=== PATIENT | female | born 1965 | race Caucasian/White ===

== ENCOUNTER → 2017-12-20 09:14 | Outpatient (CLI) | payer BC, SELFPAY ==
[2017-12-20 12:20] LABS: ALB/GLOB Ratio 1.3 RATIO (0.9-2.4); AST(SGOT) 18 U/L (15-37); Alanine Aminotransfer ALT/SGPT 20 U/L (13-56); Albumin, Serum 3.9 g/dL (3.2-5.0); Alkaline Phosphatase 51 U/L (45-117); Anion Gap 9 (5-15); BUN 16 mg/dL (7-18); BUN/Creat Ratio 22.7 RATIO (10-20); Calcium,Total 8.8 mg/dL (8.5-10.1); Chloride 103 mmol/L (98-107); Cholesterol 232 mg/dL (200); Creatinine, Serum 0.71 mg/dL (0.55-1.02); EST Glomerular Filtration Rate 92 mL/min (>60); Est Glom Filt Rate - Afr Amer 111 mL/min (>60); Ferritin 59 ng/mL (8-252); Globulin 3.1 g/dL (2.2-4.2); Glucose 84 mg/dL (74-106); High Density Lipoprotein 57 mg/dL; Potassium 4.1 mmol/L (3.5-5.1); Sodium Level 140 mmol/L (136-145); Thyroid Stim Hormone (TSH) 1.76 uIU/mL (0.358-3.74); Triglycerides 100 mg/dL; Very Low Density Lipoprotein 20 mg/dL (5-40)
[2017-12-22 23:41] LABS: CRP < 2.90 mg/L (0.0-3.0); Rheumatoid Factor < 10.0 IU/mL (<15)
[2017-12-24 14:07] LABS: Anti-Centromere B Ab <0.2 AI (0.0-0.9); Anti-Chromatin <0.2 AI (0.0-0.9); Anti-Jo <0.2 AI (0.0-0.9); Anti-Scleroderma-70 AB <0.2 AI (0.0-0.9); Anti-ribosomal P Antibodies <0.2 AI (0.0-0.9); RNP Ab <0.2 AI (0.0-0.9); SJOGREN'S Anti-SS-A test < 0.2 AI (0.0-0.9); SJOGREN'S Anti-SS-B test < 0.2 AI (0.0-0.9); Smith Ab <0.2 AI (0.0-0.9); Smith/RNP Ab <0.2 AI (0.0-0.9)
[2017-12-25 08:29] LABS: Anti-dsDNA Ab <1 IU/mL (0-9)
== END ==
PROVIDERS: Family Provider Family Medicine; PCP Family Medicine; Visit Provider Family Medicine
DX: Z13.220 Encounter for screening for lipoid disorders (principal); D72.9 Disorder of white blood cells, unspecified; L65.9 Nonscarring hair loss, unspecified
CPT/HCPCS: 36415; 80053; 80061; 82306; 82728; 84443; 86038; 86140; 86225; 86235; 86431

== ENCOUNTER → 2018-01-04 10:55 | Outpatient (CLI) | payer BC, SELFPAY ==
--- NOTE | 2018-01-04 10:57 | HPBD_ITS ---
STUDY: DUAL ENERGY X-RAY ABSORPTIOMETRY / DXA REASON FOR EXAM: Female, 52 years old. The patient is postmenopausal. Loss of height. TECHNIQUE: Bone Mineral Density (BMD) measurements of lumbar spine and bilateral hips were obtained. COMPARISON: None. FINDINGS: Lumbar Spine (L1-L4): g/cm2 (1.057) / T-score (-0.9) / Z-score (-0.2) Findings are suggestive of normal bone density with a low fracture risk. Left Femur Total: g/cm2 (0.716) / T-score (-2.3) / Z-score (-1.7) Left Femoral Neck: g/cm2 (0.679) / T-score (-2.6) / Z-score (-1.6) Right Femur Total: g/cm2 (0.758) / T-score (-2.0) / Z-score (-1.4) Right Femoral Neck: g/cm2 (0.725) / T-score (-1.2) / Z-score (-1.3) HPBD/Dexa Bone Density Study (HP) IMPRESSION: The patient is considered osteoporotic as outlined below according to World Leonardo Organization (WHO) criteria with a high fracture risk. Reference Information: The T-score is the number of standard deviations above or below the standard which is normal for young adults at their peak bone mineral density. The World Health Organization (WHO) interprets the T-scores as follows: Above -1 Normal bone density Between -1 and -2.5 Osteopenia Equal to / or below -2.5 Osteoporosis As a practical clinical guideline, osteopenia may be graded as follows: Mild -1 through -1.5 Moderate -1.6 through -2.0 Severe -2.1 through -2.4 The Z-score is the number of standard deviations above or below age-matched controls. A Z-score of less than -1.5 would be considered abnormal. References: 1. NIH Osteoporosis and Related Bone Diseases http://www.osteo.org 2. International Society for Clinical Densitometry http://www.iscd.org 3. National Osteoporosis Foundation http://www.nof.org Electronically Signed: Donald Salgado MD at 14:19 EDT Tel [phone], Service support ,
== END ==
PROVIDERS: Family Provider Family Medicine; PCP Family Medicine; Visit Provider Family Medicine
DX: M81.0 Age-related osteoporosis without current pathological fracture (principal)
CPT/HCPCS: 77080

== ENCOUNTER → 2018-01-04 11:00 | Outpatient (CLI) | payer BC, SELFPAY ==
--- NOTE | 2018-01-04 11:38 | RAD_ITS ---
STUDY: X-RAY - RIGHT KNEE REASON FOR EXAM: Female, 52 years old. Pain TECHNIQUE: 3 view(s) of the knee. COMPARISON: None. FINDINGS: There is no evidence of fracture or dislocation. There are no significant degenerative changes. There are no radiodense foreign bodies. RAD/Knee 3 Views IMPRESSION: Negative radiographs of the right knee. Electronically Signed: Ace Lindsey, at 23:41 EDT Tel , Service support ,
--- NOTE | 2018-01-04 11:38 | RAD_ITS ---
STUDY: X-RAY - LEFT KNEE REASON FOR EXAM: Female, 52 years old. Pain TECHNIQUE: 3 view(s) of the knee. COMPARISON: None. FINDINGS: There is no evidence of fracture or dislocation. There are no significant degenerative changes. There are no radiodense foreign bodies. RAD/Knee 3 Views IMPRESSION: Negative radiographs of the left knee. Electronically Signed: Ace Lindsey, at 23:40 EDT Tel , Service support ,
== END ==
LOC: MTLAB 11:30 → MTRAD 11:50 → MTLAB 02-06 11:53
PROVIDERS: Family Provider Family Medicine; PCP Family Medicine; Visit Provider Family Medicine
DX: M25.561 Pain in right knee (principal); M25.562 Pain in left knee
CPT/HCPCS: 73562

== ENCOUNTER → 2019-11-06 12:59 | Outpatient (CLI) | payer BC, SELFPAY ==
[2019-11-07 21:25] LABS: HPV Reflexed? NOT INDICATED
== END ==
LOC: MFPLAB 13:00 → LABSPEC 13:00
PROVIDERS: PCP Family Medicine; Visit Provider Family Medicine
DX: Z01.419 Encounter for gynecological examination (general) (routine) without abnormal findings (principal)
CPT/HCPCS: 88175; G0145

== ENCOUNTER 2019-12-04 17:36 | Emergency (ER) | payer BC, SELFPAY ==
[2019-12-04 17:36] VITALS: BP 143/77; PULSE 60; RESP 16; O2SAT 99
[2019-12-04 17:37] VITALS: BP 143/77; PULSE 59; RESP 16; TEMP 36.4; O2SAT 99; BMI 23.8
--- NOTE | 2019-12-04 17:45 | EKG12_ITS ---
Test Reason : Blood Pressure : / mmHG Vent. Rate : 057 BPM Atrial Rate : 057 BPM P-R Int : 178 ms QRS Dur : 076 ms QT Int : 448 ms P-R-T Axes : 058 073 071 degrees QTc Int : 436 ms Sinus bradycardia Nonspecific ST abnormality Abnormal ECG Confirmed by BRUCE SHORT ([id number]), sound editor KYLE ELLISON ([id number]) on 12/06/2019 9:42:16 AM Referred By: SOREN Confirmed By:BRUCE SHORT
--- NOTE | 2019-12-04 17:46 | NURSING ---
NO OLD EKGS
--- NOTE | 2019-12-04 17:46 | ED.VIS.CHEST ---
History of Present Illness Chief Complaint: Chest Pain Informant: Patient Onset: Hours - 0.5 Activity at onset: Rest - sitting at a meeting Quality: Heaviness, Tightness Location: Substernal - w/ radiation into both shoulders/upper arms, not to neck/back/abd Current Severity: Moderate Maximum Severity: Severe Worsened By: Nothing. Not Worsened By: Exertion, Movement of Arm, Movement of Torso, Palpation, Breathing Relieved By: Nothing - tried no medications Associated Symptoms: Nausea - gone now, Dyspnea - mild at onset, gone, Lightheadedness - gone. Negative for: Vomiting, Diaphoresis, Cough, Fever, Palpitations Narrative: Patient never had this before. No history of cardiac disease or any risk factors, she is a non-smoker and in fact lifted weights last night with no symptoms. She denies any unusual foods today although she states she has been on a keto diet for 2 weeks which is new for her. She has had no diarrhea, melena, bright red blood per rectum. Discomfort is nonpleuritic. No recent leg pain or swelling, no recent immobilization or travel or hospitalization or surgery. No history of DVT/PE. Prior Similar Symptoms: No Recent Illness/Hospitalization: No CVD Risk Factors: Negative for: Hypertension, Diabetes, Hypercholesterolemia, Family History 1' </=55, Smoking PE Risk Factors: Negative for: Recent Travel/Surgery, Recenet Immobilization, Prior DVT or PE, Cancer, OCP + Smoking + >/=35 - Past Medical History (1) Depression Status: Chronic Past Medical History - Allergies and Home Meds Allergies/Adverse Reactions: Allergies Penicillins [PCN] Allergy (Verified 12/04/19 17:39) Rash Primary Care Physician: Caleb Alvarenga MD [Primary Care Provider] - Surgical History: no surgical history Lives: Spouse/ Significant Other Smoking Status: Never smoker Drugs: None Review of Systems General: Denies: Chills, Fever, Sweats Eyes: Denies: Visual changes - bilaterally, Diplopia ENT: Denies: Rhinorrhea, Sore throat Cardiovascular: Reports: Chest pain. Denies: Palpitations Respiratory: Reports: Dyspnea. Denies: Cough, Dyspnea on exertion Gastrointestinal: Reports: Nausea. Denies: Abdominal pain, Vomiting, Diarrhea, Melena, Hematochezia Genitourinary: Denies: Dysuria, Hematuria, Frequency Musculoskeletal: Reports: Extremity Pain - See HPI. No other extremity pain.. Denies: Neck pain, Back pain, Swelling Skin: Denies: Rash, Wounds Neurological: Denies: Headache, Weakness, Numbness Physical Exam Vital Signs/Narrative: Vital Signs Temp Pulse Resp BP Pulse Ox 12/04/19 17:37 97.6 F L 59 L 16 143/77 H 99 12/04/19 17:36 60 16 143/77 H 99 Inital Vital Signs reviewed: Yes General: Well nourished, Well developed, No Acute Distress Head: Normocephalic, Atraumatic Eyes: Perrl, EOMI ENT: Moist mucous membranes, No rhinorrhea Neck: Supple, Nontender, No lymphadenopathy, No JVD Cardiovascular: Regular rate, Regular rhythm, No murmurs. Negative for: Tachycardia Respiratory: No distress, CTA bilaterally, Chest nontender Abdomen: Soft, Nontender, Nondistended, Normal bowel sounds Back: Nontender, Normal Inspection. Negative for: CVA tenderness Extremities: Nontender, No edema. Negative for: Calf Tenderness Skin: Normal color, No rash, No Trauma Neurological: Alert, Oriented x3, Cranial nerves II-XII grossly intact, Normal Strength, Normal Sensation Psychological: Normal affect, Normal Mood Diagnostic/Tx/Re-eval Impressions Chest X-Ray 12/04/19 17:50 IMPRESSION: Normal x-ray examination of the chest. Electronically Signed: Live Garcia MD at 18:42 EST , Service support , 12/04/19 17:50 Chest 1 View (Portable) [RAD] Stat Laboratory Results 12/04/19 12/04/19 17:45 17:45 WBC 6.1 RBC 4.47 Hgb 14.4 Hct 41.5 MCV 92.8 MCH 32.2 H MCHC 34.7 RDW Std Deviation 40.5 RDW Coeff of Derrick 11.8 Plt Count 233 MPV 8.8 Immature Gran % (Auto) 0.200 Neut % (Auto) 61.7 Lymph % (Auto) 26.2 [place] % (Auto) 9.7 Eos % (Auto) 1.7 Baso % (Auto) 0.5 Absolute Neuts (auto) 3.7 Absolute Lymphs (auto) 1.59 Nucleated RBC % 0 Sodium 139 Potassium 3.6 Chloride 103 Carbon Dioxide 30.0 Anion Gap 6 BUN 16 Creatinine 0.80 Estim Creat Clear Calc 77.27 Est GFR (MDRD) Af Amer 95 Est GFR (MDRD) Non-Af 79 BUN/Creatinine Ratio 19.9 Glucose 94 Calcium 9.7 Troponin I < 0.015 - Rhythm Strip Rhythm Strip: Sinus Rhythm Rate: 57 Ectopy: None - EKG Initial EKG Interpretation: Sinus Rhythm, No Acute Injury Pattern - Normal EKG Prior: No Prior Treatment: GI Cocktail Repeat Eval: Pain Free ECTRO Risk: No Positive ECTOR Elements Score: 0 - Medical Decision Making Patient feels much better after GI cocktail. Her enzymes are negative and her work-up is unremarkable. She is low risk for heart disease. I recommended a 3-hour delta troponin. The patient prefers to go home now. We discussed the fact that her heart score is low, 2 for history and age, and that given this pathway, her risk of a myocardial event in the next 30 days if she chooses to skip the repeat troponin would be 1.7%. She accepts that and is okay following up with her doctor at this time. We discussed the fact that the differential includes esophageal spasm in addition to other esophageal acid related disorders. If she has recurrent symptoms she is advised to try Prilosec OTC and she is always welcome to return to the ER for reevaluation. ED Disposition - Plan for ED Patient: Disposition: Home or Assisted Living Diagnosis: Chest pain, unspecified Instructions: CHEST PAIN, NonCardiac Referrals: Caleb Alvarenga MD [Primary Care Provider] - (call for appt)
--- NOTE | 2019-12-04 17:47 | NURSING ---
NO OLD EKGS
--- NOTE | 2019-12-04 17:50 | RAD_ITS ---
STUDY: X-RAY CHEST REASON FOR EXAM: Female, 54 years old. CHEST PAIN TECHNIQUE: Single AP portable view of the chest. COMPARISON: None. FINDINGS: The lungs are clear and expanded. There is no demonstrated pleural abnormality. Normal size heart. Normal mediastinum and [place]. Normal visualized pulmonary arteries. Normal visualized aortic arch and descending thoracic aorta. Normal visualized thoracic spine. Normal visualized ribs, clavicles, and shoulders. Suggestion of right upper quadrant surgical clips or radiopaque densities. RAD/Chest 1 View (Portable) IMPRESSION: Normal x-ray examination of the chest. Electronically Signed: Live Garcia MD at 18:42 EST , Service support ,
[2019-12-04 17:53] VITALS: O2SAT 99
[2019-12-04 17:54] LABS: Absolute Lymphocyte Count 1.59 X10^3/uL (0.83-4.51); Absolute Neutrophil Count 3.7 X10^3/uL (2.0-7.7); Basophil# 0.03 X10^3/uL; Basophil% 0.5 % (0-1); Eosinophils% 1.7 % (0-5); Hematocrit 41.5 % (37-47); Hemoglobin 14.4 g/dL (12.0-15.0); Lymphocyte # 1.59 X10^3/ul (4.0); Lymphocyte % 26.2 % (19-41); Mean Corp Hgb Conc 34.7 g/dL (32-36); Mean Corpuscular Hgb 32.2 pg (27.0-32.0); Mean Corpuscular Volume 92.8 fL (81-99); Mean Platelet Vol. 8.8 fl (6.2-12.0); Monocyte# 0.59 X10^3/uL; Monocyte% 9.7 % (0-10); NRBC Flagged by Analyzer 0 % (0-5); Neutrophil # 3.74 X10^3/uL (2.7-7.7); Neutrophil % 61.7 % (47-70); Platelet Count 233 K/mm3 (150-450); RBC Distribution Width CV 11.8 % (11.6-14.6); RBC Distribution Width SD 40.5 fl (35.1-43.9); Red Blood Count 4.47 M/mm3 (4.2-5.4); White Blood Count 6.1 K/mm3 (4.4-11.0)
[2019-12-04] MEDS: Mag Hydrox/Al Hydrox/Simeth 30 ML UDC PO (17:57)
[2019-12-04 18:18] LABS: Anion Gap 6 (5-15); BUN 16 mg/dL (7-18); BUN/Creat Ratio 19.9 RATIO (10-20); Calcium,Total 9.7 mg/dL (8.5-10.1); Chloride 103 mmol/L (98-107); EST Glomerular Filtration Rate 79 mL/min (>60); Est Glom Filt Rate - Afr Amer 95 mL/min (>60); Estimated Creatinine Clearance 77.27 ml/min; Glucose 94 mg/dL (74-106); Potassium 3.6 mmol/L (3.5-5.1); Sodium Level 139 mmol/L (136-145)
[2019-12-04 19:07] VITALS: PULSE 79; RESP 14; TEMP 37.2
== END 2019-12-04 19:24 | disposition home or self-care (01) ==
PROVIDERS: Emergency Provider Emergency Medicine; PCP Family Medicine
DX: R07.9 Chest pain, unspecified (principal); F32.9 Major depressive disorder, single episode, unspecified
CPT/HCPCS: 71045; 80048; 84484; 85025; 93005; 99284

== ENCOUNTER → 2019-12-07 12:53 | Outpatient (CLI) | payer BC, SELFPAY ==
[2019-12-04 17:37] VITALS: BMI 23.8
[2019-12-07 14:16] LABS: Absolute Lymphocyte Count 1.23 X10^3/uL (0.83-4.51); Absolute Neutrophil Count 6.7 X10^3/uL (2.0-7.7); Basophil# 0.03 X10^3/uL; Basophil% 0.3 % (0-1); Eosinophil# 0.04 X10^3/uL; Eosinophils% 0.4 % (0-5); Hematocrit 38.6 % (37-47); Hemoglobin 13.1 g/dL (12.0-15.0); Lymphocyte # 1.23 X10^3/ul (4.0); Lymphocyte % 13.8 % (19-41); Mean Corp Hgb Conc 33.9 g/dL (32-36); Mean Corpuscular Hgb 32.1 pg (27.0-32.0); Mean Corpuscular Volume 94.6 fL (81-99); Mean Platelet Vol. 9.6 fl (6.2-12.0); Monocyte# 0.92 X10^3/uL; Monocyte% 10.3 % (0-10); NRBC Flagged by Analyzer 0 % (0-5); Neutrophil # 6.65 X10^3/uL (2.7-7.7); Neutrophil % 74.8 % (47-70); Platelet Count 205 K/mm3 (150-450); RBC Distribution Width CV 11.9 % (11.6-14.6); RBC Distribution Width SD 40.9 fl (35.1-43.9); Red Blood Count 4.08 M/mm3 (4.2-5.4); White Blood Count 8.9 K/mm3 (4.4-11.0)
[2019-12-07 14:39] LABS: AST(SGOT) 55 U/L (15-37); Alanine Aminotransfer ALT/SGPT 34 U/L (13-56); Albumin, Serum 3.8 g/dL (3.2-5.0); Alkaline Phosphatase 49 U/L (45-117); Anion Gap 8 (5-15); BUN 11 mg/dL (7-18); BUN/Creat Ratio 15.4 RATIO (10-20); Calcium,Total 9.2 mg/dL (8.5-10.1); Chloride 100 mmol/L (98-107); Cholesterol 208 mg/dL (200); Creatinine, Serum 0.71 mg/dL (0.55-1.02); EST Glomerular Filtration Rate 90 mL/min (>60); Est Glom Filt Rate - Afr Amer 109 mL/min (>60); Globulin 3.7 g/dL (2.2-4.2); Glucose 107 mg/dL (74-106); High Density Lipoprotein 70 mg/dL; Potassium 3.8 mmol/L (3.5-5.1); Protein, Total 7.5 g/dL (6.4-8.2); Sodium Level 137 mmol/L (136-145); Thyroid Stim Hormone (TSH) 2.09 uIU/mL (0.358-3.74); Triglycerides 84 mg/dL; Very Low Density Lipoprotein 17 mg/dL (5-40)
[2019-12-07 14:50] LABS: PTHIN 93.2 pg/mL (18.4-80.1)
[2019-12-08 17:08] LABS: ANTINUCLEAR ANTIBODIES DIRECT Negative (Negative)
[2019-12-11 11:18] LABS: Vitamin D,25 Hydroxy 27.1 ng/mL
== END ==
PROVIDERS: PCP Family Medicine; Referring Provider Family Medicine; Visit Provider Family Medicine
DX: I73.00 Raynaud's syndrome without gangrene (principal); M81.0 Age-related osteoporosis without current pathological fracture; E78.00 Pure hypercholesterolemia, unspecified
CPT/HCPCS: 36415; 80053; 80061; 82306; 83970; 84443; 85025; 86038

== ENCOUNTER → 2020-05-14 08:33 | Outpatient (CLI) | payer BC, SELFPAY ==
--- NOTE | 2020-05-14 08:37 | BD_ITS ---
STUDY: DUAL ENERGY X-RAY ABSORPTIOMETRY / DXA REASON FOR EXAM: Female, 54 years old. [employer] -- HX OF SMOKING- QUIT AT AGE 39 -- TAKES CALCIUM -- HX OF TAKING PROLIA- TOOK FOR 1.5 YRS, LAST DOSE WAS JUST OVER 6 MONTHS AGO, TAKING BONIVA ALSO -- DOES MODERATE AMOUNT OF EXERCISE -- FAMILY HX OF OSTEO- MOTHER, GRANDMOTHER -- SEVERIANO OF 2 INCHES TECHNIQUE: Bone Mineral Density (BMD) measurements of lumbar spine and bilateral hips were obtained. COMPARISON: Comparison is made with prior examination of 01/04/2018. FINDINGS: Lumbar Spine (L1-L4): g/cm2 (1.118) / T-score (-0.4) / Z-score (0.5) Findings are suggestive of normal bone density with a low fracture risk. Left Femur Total: g/cm2 (0.741) / T-score (-2.1) / Z-score (-1.4) Left Femoral Neck: g/cm2 (0.701) / T-score (-2.4) / Z-score (-1.4) Right Femur Total: g/cm2 (0.773) / T-score (-1.9) / Z-score (-1.2) Right Femoral Neck: g/cm2 (0.751) / T-score (-2.1) / Z-score (-1.0) The T-Scores on the most recent prior examination were: Lumbar Spine (L1-L4): There has been improvement of bone density since the previous examination. Left Femur Total: which represents an improvement of 3.5%. Right Femur Total: which represents an improvement of 2%. BD/Dexa Bone Density Study IMPRESSION: The patient is considered osteopenic as outlined below according to World Leonardo Organization (WHO) criteria with a high fracture risk. There has been improvement of bone density since the previous examination. Reference Information: The T-score is the number of standard deviations above or below the standard which is normal for young adults at their peak bone mineral density. The World Health Organization (WHO) interprets the T-scores as follows: Above -1 Normal bone density Between -1 and -2.5 Osteopenia Equal to / or below -2.5 Osteoporosis As a practical clinical guideline, osteopenia may be graded as follows: Mild -1 through -1.5 Moderate -1.6 through -2.0 Severe -2.1 through -2.4 The Z-score is the number of standard deviations above or below age-matched controls. A Z-score of less than -1.5 would be considered abnormal. References: 1. NIH Osteoporosis and Related Bone Diseases http://www.osteo.org 2. International Society for Clinical Densitometry http://www.iscd.org 3. National Osteoporosis Foundation http://www.nof.org Electronically Signed: Donald Salgado, at 15:13 EDT , Service support ,
== END ==
PROVIDERS: PCP Family Medicine; Referring Provider Family Medicine; Visit Provider Family Medicine
DX: N95.9 Unspecified menopausal and perimenopausal disorder (principal)
CPT/HCPCS: 77080

== ENCOUNTER → 2020-12-30 14:46 | Outpatient (CLI) | payer BC, SELFPAY ==
--- NOTE | 2020-12-30 14:49 | BI_ITS ---
MAMMOGRAPHY - BILATERAL SCREENING REASON FOR EXAM: Female, 55 years old. Routine annual screening examination. PERTINENT HISTORY: Non-contributory. TECHNIQUE: Digital bilateral breast gareth (3D mammographic acquisition) in the CC and MLO projections. 2-D mediolateral oblique (MLO) and craniocaudad (CC) views of both breasts were obtained. CAD: Full Field Digital Mammography with Computer Added Detection was performed. COMPARISON: Comparison is made with prior outside examination dated 09/07/2019 FINDINGS: Breast Composition: The breasts are extremely dense, which lowers the sensitivity of mammography. There are no dominant masses or suspicious calcifications. Stable asymmetry of breast tissue with more breast tissue is seen in the upper outer quadrant of the right breast as compared to the left side. No other significant abnormalities are identified. There has been no significant change since the prior study. BI/SCRN MAMM (CAD)W/GARETH BILAT IMPRESSION: Stable bilateral screening mammogram. Yearly follow-up mammogram recommended. (A) ASSESSMENT CATEGORY: BIRADS Category 2: Benign. A letter regarding these results will be sent to the patient by the facility within 30 days. Approximately 10% of breast cancers are not detected by mammography. A normal mammogram should not delay biopsy of a clinically suspicious abnormality. [id number] Electronically Signed: Donald Salgado MD at 15:43 EDT , Service support ,
== END ==
PROVIDERS: PCP Family Medicine; Referring Provider Family Medicine; Visit Provider Family Medicine
DX: Z12.31 Encounter for screening mammogram for malignant neoplasm of breast (principal)
CPT/HCPCS: 77063; 77067

== ENCOUNTER → 2021-04-22 14:05 | Outpatient (CLI) | payer BC, SELFPAY | LOC: MFPLAB 14:05 → LABSPEC 14:05 | PROVIDERS: PCP Family Medicine; Visit Provider Family Medicine | DX: R30.0 Dysuria (principal) | CPT/HCPCS: 87086 ==

== ENCOUNTER → 2021-07-09 11:22 | Outpatient (CLI) | payer BC, SELFPAY ==
--- NOTE | 2021-07-09 11:24 | RAD_ITS ---
STUDY: X-RAY - UNILATERAL RIBS ( RIGHT ) REASON FOR EXAM: Female, 56 years old. R sided anterior pain at T6-8 level TECHNIQUE: 4 view(s) of the ribs. COMPARISON: None. FINDINGS: No acute fracture, dislocation or osseous destruction. No significant joint space narrowing. No significant productive changes. No significant soft tissue swelling. Right upper quadrant surgical clips. Tiny right apex granuloma. RAD/Ribs Unil 2V No CXR IMPRESSION: Ribs intact Electronically Signed: Caleb Philip DO at 9:06 EDT Tel , Service support ,
== END ==
PROVIDERS: PCP Family Medicine; Referring Provider Family Medicine; Visit Provider Family Medicine
DX: M94.0 Chondrocostal junction syndrome [Tietze] (principal)
CPT/HCPCS: 71100

== ENCOUNTER → 2021-09-07 11:00 | Outpatient (CLI) | payer BC, SELFPAY ==
[2021-09-07 15:09] LABS: Absolute Lymphocyte Count 0.92 X10^3/uL (0.83-4.51); Absolute Neutrophil Count 2.8 X10^3/uL (2.0-7.7); Basophil# 0.03 X10^3/uL; Basophil% 0.7 % (0-1); Eosinophil# 0.34 X10^3/uL; Eosinophils% 7.5 % (0-5); Hematocrit 41.3 % (37-47); Hemoglobin 13.7 g/dL (12.0-15.0); Lymphocyte # 0.92 X10^3/ul (0.83-4.51); Lymphocyte % 20.4 % (19-41); Mean Corp Hgb Conc 33.2 g/dL (32-36); Mean Corpuscular Hgb 31.3 pg (27.0-32.0); Mean Corpuscular Volume 94.3 fL (81-99); Mean Platelet Vol. 10.1 fl (6.2-12.0); Monocyte# 0.44 X10^3/uL; Monocyte% 9.8 % (0-10); NRBC Flagged by Analyzer 0 % (0-5); Neutrophil # 2.77 X10^3/uL (2.7-7.7); Neutrophil % 61.4 % (47-70); Platelet Count 211 K/mm3 (150-450); RBC Distribution Width SD 42.2 fl (35.1-43.9); Red Blood Count 4.38 M/mm3 (4.2-5.4); White Blood Count 4.5 K/mm3 (4.4-11.0)
[2021-09-07 15:30] LABS: ALB/GLOB Ratio 1.2 RATIO (0.9-2.4); AST(SGOT) 18 U/L (15-37); Alanine Aminotransfer ALT/SGPT 24 U/L (13-56); Albumin, Serum 3.8 g/dL (3.2-5.0); Alkaline Phosphatase 51 U/L (45-117); Anion Gap 2 (5-15); BUN 15 mg/dL (7-18); BUN/Creat Ratio 11.5 RATIO (10-20); Chloride 108 mmol/L (98-107); Creatinine, Serum 1.31 mg/dL (0.55-1.02); EST Glomerular Filtration Rate 44 mL/min (>60); Est Glom Filt Rate - Afr Amer 54 mL/min (>60); Globulin 3.1 g/dL (2.2-4.2); Glucose 83 mg/dL (74-106); Potassium 4.9 mmol/L (3.5-5.1); Protein, Total 6.9 g/dL (6.4-8.2); Sodium Level 141 mmol/L (136-145); Thyroid Stim Hormone (TSH) 1.69 uIU/mL (0.358-3.74)
[2021-09-09 13:56] LABS: ANTINUCLEAR ANTIBODIES DIRECT Negative (Negative)
[2021-09-09 16:09] LABS: Endomysial Antibody IgA Negative (Negative)
[2021-09-09 22:53] LABS: Deamidated Gliadin IgA 3 units (0-19); Deamidated Gliadin IgG 2 units (0-19); Immunoglobulin A 84 mg/dL (87-352); t-Transglutaminase IgA <2 U/mL (0-3)
== END ==
PROVIDERS: PCP Family Medicine; Visit Provider Family Medicine
DX: L50.9 Urticaria, unspecified (principal); Z01.84 Encounter for antibody response examination
CPT/HCPCS: 80053; 82784; 83516; 84443; 85025; 86038; 86255; 86769

== ENCOUNTER 2022-01-14 07:16 | Outpatient (CLI) | payer BC, SELFPAY ==
--- NOTE | 2022-01-14 07:18 | BI_ITS ---
MAMMOGRAPHY - BILATERAL SCREENING REASON FOR EXAM: Female, 56 years old. Routine annual screening examination. PERTINENT HISTORY: Non-contributory. TECHNIQUE: Digital bilateral breast gareth (3D mammographic acquisition) in the CC and MLO projections. 2-D mediolateral oblique (MLO) and craniocaudad (CC) views of both breasts were obtained. CAD: Full Field Digital Mammography with Computer Added Detection was performed. COMPARISON: Comparison is made with prior study dated 12/30/2020. FINDINGS: Breast Composition: The breasts are extremely dense, which lowers the sensitivity of mammography. There are no dominant masses or suspicious calcifications. Asymmetry of breast tissue where more breast tissue is seen in the upper outer quadrant of the right breast as compared to the left side. Correlation with ultrasound of the right breast is recommended. No other significant abnormalities are identified. BI/SCRN MAMM (CAD)W/GARETH BILAT IMPRESSION: Stable bilateral screening mammogram. Correlation with ultrasound of the right breast is recommended for further evaluation. ASSESSMENT CATEGORY: BIRADS Category 0: Incomplete. Need additional imaging evaluation. A letter regarding these results will be sent to the patient by the facility within 30 days. Approximately 10% of breast cancers are not detected by mammography. A normal mammogram should not delay biopsy of a clinically suspicious abnormality. [id number] Electronically Signed: Donald Salgado MD at 8:22 EDT ,
== END 2022-01-14 23:59 | disposition home or self-care (01) ==
LOC: OPBI 07:16
PROVIDERS: PCP Family Medicine; Visit Provider Family Medicine
DX: Z12.31 Encounter for screening mammogram for malignant neoplasm of breast (principal)
CPT/HCPCS: 77063; 77067

== ENCOUNTER 2022-01-15 08:02 | Outpatient (CLI) | payer BC, SELFPAY ==
--- NOTE | 2022-01-15 08:08 | US_ITS ---
STUDY: ULTRASOUND BREAST - RIGHT REASON FOR EXAM: Female, 56 years old. Breast asymmetry. TECHNIQUE: Axial and longitudinal images of the RIGHT breast were performed with a high resolution ultrasound transducer. # OF IMAGES: 36 COMPARISON: Comparison is made with prior mammogram dated 01/14/2022. FINDINGS: RIGHT Breast: The upper outer quadrant of the right breast was examined. There is dense fibroglandular tissue. No solid or cystic mass lesion is seen. US/Breast Limited Unilateral IMPRESSION: No sonographic abnormality is seen. ASSESSMENT CATEGORY: BIRADS Category 1: Negative. A letter regarding these results will be sent to the patient by the facility within 30 days. Electronically Signed: Donald Salgado MD at 12:36 EDT ,
== END 2022-01-15 23:59 | disposition home or self-care (01) ==
LOC: OPUS 08:03
PROVIDERS: PCP Family Medicine; Visit Provider Family Medicine
DX: R92.8 Other abnormal and inconclusive findings on diagnostic imaging of breast (principal)
CPT/HCPCS: 76642

== ENCOUNTER → 2022-04-13 | Outpatient (CLI) | payer BC, SELFPAY ==
[2022-04-13 15:49] LABS: Bacteria 0 SEEN /hpf (None Seen); Mucous, Urine 0 SEEN /hpf (<or=2+); Red Blood Cells-Urine 0 SEEN /hpf (0-5); Squamous Epithelial Cells - UA 0 SEEN /hpf (5-10)
[2022-04-13 18:09] LABS: Color, Urine Straw (Yellow); Glucose, Dipstick Normal (Normal); Ketone-Dipstick Negative (Negative); Leukocyte Esterase-Dipstick 500 /ul (Negative); Nitrite-Dipstick Negative (Negative); Occult Blood-Urine Negative /ul (Negative); Protein-Dipstick Negative (Negative); Urine Bilirubin Dipstick Negative (Negative); Urine Clarity Clear (Clear); Urine Urobilinogen Normal (Normal)
[2022-04-13 18:19] LABS: White Blood Cells 0-5 SEEN /hpf (0-5)
[2022-04-13 19:06] LABS: ALB/GLOB Ratio 1.3 RATIO (0.9-2.4); AST(SGOT) 22 U/L (15-37); Alanine Aminotransfer ALT/SGPT 25 U/L (13-56); Albumin, Serum 4.3 g/dL (3.2-5.0); Alkaline Phosphatase 51 U/L (45-117); Anion Gap 5 (5-15); BUN 12 mg/dL (7-18); BUN/Creat Ratio 17.3 RATIO (10-20); Calcium,Total 9.5 mg/dL (8.5-10.1); Chloride 105 mmol/L (98-107); Cholesterol 271 mg/dL (200); Creatinine, Serum 0.69 mg/dL (0.55-1.02); EST Glomerular Filtration Rate 92 mL/min (>60); Est Glom Filt Rate - Afr Amer 112 mL/min (>60); Globulin 3.2 g/dL (2.2-4.2); Glucose 91 mg/dL (74-106); High Density Lipoprotein 65 mg/dL; Potassium 4.1 mmol/L (3.5-5.1); Protein, Total 7.5 g/dL (6.4-8.2); Sodium Level 141 mmol/L (136-145); Triglycerides 147 mg/dL; Very Low Density Lipoprotein 29 mg/dL (5-40)
[2022-04-14 08:24] LABS: PTHIN 68.4 pg/mL (18.4-80.1)
== END | disposition home or self-care (01) ==
LOC: MFPLAB 15:48
PROVIDERS: PCP Family Medicine; Visit Provider Family Medicine
DX: E78.00 Pure hypercholesterolemia, unspecified (principal); F33.41 Major depressive disorder, recurrent, in partial remission; M81.0 Age-related osteoporosis without current pathological fracture; R31.29 Other microscopic hematuria
CPT/HCPCS: 36415; 80053; 80061; 81001; 82306; 82746; 83970

== ENCOUNTER → 2023-03-23 | Outpatient (CLI) | payer BC, SELFPAY | END | disposition home or self-care (01) | PROVIDERS: PCP Family Medicine; Visit Provider Family Medicine | DX: N39.0 Urinary tract infection, site not specified (principal) | CPT/HCPCS: 87086; 87088 ==

== ENCOUNTER → 2024-08-13 | Outpatient (CLI) | payer BC, SELFPAY ==
[2024-08-13 18:16] LABS: Absolute Lymphocyte Count 1.23 X10^3/uL (0.83-4.51); Absolute Neutrophil Count 2.6 X10^3/uL (2.0-7.7); Basophil# 0.03 X10^3/uL; Basophil% 0.7 % (0-1); Eosinophil# 0.18 X10^3/uL; Hematocrit 42.3 % (37-47); Hemoglobin 14.6 g/dL (12.0-15.0); Lymphocyte # 1.23 X10^3/ul (0.83-4.51); Lymphocyte % 27.5 % (19-41); Mean Corp Hgb Conc 34.5 g/dL (32-36); Mean Corpuscular Hgb 31.6 pg (27.0-32.0); Mean Corpuscular Volume 91.6 fL (81-99); Mean Platelet Vol. 9.6 fl (6.2-12.0); Monocyte# 0.43 X10^3/uL; Monocyte% 9.6 % (0-10); NRBC Flagged by Analyzer 0 % (0-5); Platelet Count 203 K/mm3 (150-450); RBC Distribution Width SD 39.8 fl (35.1-43.9); Red Blood Count 4.62 M/mm3 (4.2-5.4); White Blood Count 4.5 K/mm3 (4.4-11.0)
[2024-08-13 18:26] LABS: Vitamin D,25 Hydroxy 77.2 ng/mL
[2024-08-13 18:37] LABS: ALB/GLOB Ratio 1.3 RATIO (0.9-2.4); AST(SGOT) 14 U/L (15-37); Alanine Aminotransfer ALT/SGPT 25 U/L (13-56); Albumin, Serum 4.1 g/dL (3.2-5.0); Alkaline Phosphatase 63 U/L (45-117); Anion Gap 5 (5-15); BUN 14 mg/dL (7-18); BUN/Creat Ratio 19.1 RATIO (10-20); Calcium,Total 9.5 mg/dL (8.5-10.1); Chloride 105 mmol/L (98-107); Cholesterol 267 mg/dL (200); Creatinine, Serum 0.73 mg/dL (0.55-1.02); EST Glomerular Filtration Rate 86 mL/min (>60); Est Glom Filt Rate - Afr Amer 104 mL/min (>60); Globulin 3.1 g/dL (2.2-4.2); Glucose 84 mg/dL (74-106); High Density Lipoprotein 64 mg/dL; Potassium 3.9 mmol/L (3.5-5.1); Protein, Total 7.2 g/dL (6.4-8.2); Sodium Level 139 mmol/L (136-145); Triglycerides 133 mg/dL; Very Low Density Lipoprotein 27 mg/dL (5-40)
== END | disposition home or self-care (01) ==
LOC: MFPLAB 15:30
PROVIDERS: Family Medicine; PCP Family Medicine; Referring Provider Family Medicine; Visit Provider Family Medicine
DX: Z00.00 Encounter for general adult medical examination without abnormal findings (principal); M81.0 Age-related osteoporosis without current pathological fracture; Z13.220 Encounter for screening for lipoid disorders; Z13.1 Encounter for screening for diabetes mellitus; R53.83 Other fatigue
CPT/HCPCS: 36415; 80053; 80061; 82306; 84443; 85025

== ENCOUNTER → 2024-11-06 | Outpatient (CLI) | payer BC, SELFPAY ==
--- NOTE | 2024-11-06 07:01 | BD_ITS ---
STUDY: DUAL ENERGY X-RAY ABSORPTIOMETRY / DXA REASON FOR EXAM: Female, 59 years old. 733.00OsteoporosisBONE DENSITY REASON FOR EXAM TECHNIQUE: Bone Mineral Density (BMD) measurements of lumbar spine and bilateral hips were obtained. COMPARISON: Comparison is made with prior study dated May 14, 2020. FINDINGS: Lumbar Spine (L1-L4): g/cm2 (0.979) / T-score (-0.6) / Z-score (0.8) Findings are suggestive of normal bone density with a low fracture risk. Left Femur Total: g/cm2 (0.709) / T-score (-1.9) / Z-score (-0.9) Left Femoral Neck: g/cm2 (0.557) / T-score (-2.6) / Z-score (-1.3) Right Femur Total: g/cm2 (0.726) / T-score (-1.8) / Z-score (-0.8) Right Femoral Neck: g/cm2 (0.589) / T-score (-2.3) / Z-score (-1.0) The T-Scores on the most recent prior examination were: Lumbar Spine (L1-L4): There has been worsening of bone density since the previous examination. Left Femur Total: which represents an improvement of 4%. Right Femur Total: which represents an improvement of 1.7%. BD/Dexa Bone Density Study IMPRESSION: The patient is considered osteoporotic as outlined below according to World Leonardo Organization (WHO) criteria with a high fracture risk. There has been improvement of bone density since the previous examination. Reference Information: The T-score is the number of standard deviations above or below the standard which is normal for young adults at their peak bone mineral density. The World Health Organization (WHO) interprets the T-scores as follows: Above -1 Normal bone density Between -1 and -2.5 Osteopenia Equal to / or below -2.5 Osteoporosis As a practical clinical guideline, osteopenia may be graded as follows: Mild -1 through -1.5 Moderate -1.6 through -2.0 Severe -2.1 through -2.4 The Z-score is the number of standard deviations above or below age-matched controls. A Z-score of less than -1.5 would be considered abnormal. References: 1. NIH Osteoporosis and Related Bone Diseases www osteo.org 2. International Society for Clinical Densitometry www iscd.org 3. National Osteoporosis Foundation www nof.org Electronically Signed: Donald Salgado MD at 13:49 EST ,
== END | disposition home or self-care (01) ==
PROVIDERS: PCP Family Medicine; Referring Provider Family Medicine; Visit Provider Family Medicine
DX: M81.0 Age-related osteoporosis without current pathological fracture (principal)
CPT/HCPCS: 77080

== ENCOUNTER → 2024-12-14 | Outpatient (CLI) | payer BC, SELFPAY ==
[2024-12-14 17:48] LABS: Absolute Lymphocyte Count 1.28 X10^3/uL (0.83-4.51); Absolute Neutrophil Count 2.8 X10^3/uL (2.0-7.7); Basophil# 0.03 X10^3/uL; Basophil% 0.6 % (0-1); Eosinophil# 0.16 X10^3/uL; Eosinophils% 3.3 % (0-5); Hematocrit 37.9 % (37-47); Hemoglobin 13.4 g/dL (12.0-15.0); Lymphocyte # 1.28 X10^3/ul (0.83-4.51); Lymphocyte % 26.7 % (19-41); Mean Corp Hgb Conc 35.4 g/dL (32-36); Mean Corpuscular Hgb 32.1 pg (27.0-32.0); Mean Corpuscular Volume 90.7 fL (81-99); Mean Platelet Vol. 9.7 fl (6.2-12.0); Monocyte# 0.51 X10^3/uL; Monocyte% 10.6 % (0-10); NRBC Flagged by Analyzer 0 % (0-5); Neutrophil # 2.81 X10^3/uL (2.7-7.7); Neutrophil % 58.6 % (47-70); Platelet Count 207 K/mm3 (150-450); RBC Distribution Width CV 11.9 % (11.6-14.6); RBC Distribution Width SD 39.2 fl (35.1-43.9); Red Blood Count 4.18 M/mm3 (4.2-5.4); White Blood Count 4.8 K/mm3 (4.4-11.0)
[2024-12-14 19:44] LABS: Iron 82 ug/dL (50-170); Iron Binding Capacity,Unsat 102 ug/dL (228-428)
[2024-12-14 20:19] LABS: Iron Binding Capacity,Total 184 ug/dL (250-450); PERCENT IRON SATURATION 44.6 % (15.0-55.0)
[2024-12-20 10:08] LABS: Arsenic 7245 1 ug/L (0-9); Deamidated Gliadin IgA 2 units (0-19); Deamidated Gliadin IgG 2 units (0-19); Endomysial Antibody IgA Negative (Negative); Immunoglobulin A 65 mg/dL (87-352); Lead, Blood < 1.0 ug/dL (0.0-3.4); Mercury, Blood 85324 < 1.0 ug/L (0.0-14.9); t-Transglutaminase IgA <2 U/mL (0-3)
[2024-12-22 09:08] LABS: Alternaria alternata <0.10 kU/L (Class 0); Ash, White <0.10 kU/L (Class 0); Aspergillus fumigatus <0.10 kU/L (Class 0); Bermuda Grass <0.10 kU/L (Class 0); Birch <0.10 kU/L (Class 0); Black Walnut <0.10 kU/L (Class 0); Bluegrass, Kentucky <0.10 kU/L (Class 0); Cat Hair/Dander, Standard <0.10 kU/L (Class 0); Cedar, Mountain <0.10 kU/L (Class 0); Cladosporium herbarum <0.10 kU/L (Class 0); Cockroach, American <0.10 kU/L (Class 0); Cottonwood <0.10 kU/L (Class 0); D farinae Mite <0.10 kU/L (Class 0); D pteronyssinus <0.10 kU/L (Class 0); Dog Epithelia <0.10 kU/L (Class 0); Elm, American White <0.10 kU/L (Class 0); Immunoglobulin E < 2 IU/mL (6-495); Maple/Box Elder <0.10 kU/L (Class 0); Mouse Urine <0.10 kU/L (Class 0); Mulberry, White <0.10 kU/L (Class 0); Oak, White <0.10 kU/L (Class 0); Pecan <0.10 kU/L (Class 0); Penicillium Notatum <0.10 kU/L (Class 0); Pigweed, Rough <0.10 kU/L (Class 0); Plantain, English <0.10 kU/L (Class 0); Ragweed, Short/Common <0.10 kU/L (Class 0); Russian Thistle <0.10 kU/L (Class 0); Sheep Sorrel <0.10 kU/L (Class 0); Sycamore, American <0.10 kU/L (Class 0); Timothy Grass <0.10 kU/L (Class 0)
== END | disposition home or self-care (01) ==
LOC: MTLAB 15:30
PROVIDERS: PCP Family Medicine; Referring Provider Family Medicine; Visit Provider Family Medicine
DX: L30.9 Dermatitis, unspecified (principal)
CPT/HCPCS: 36415; 82175; 82784; 82785; 83516; 83540; 83550; 83655; 83825; 85025; 86003; 86255

== ENCOUNTER → 2024-12-17 | Outpatient (CLI) | payer BC, SELFPAY | END | disposition home or self-care (01) | LOC: LABSPEC 15:55 | PROVIDERS: PCP Family Medicine; Referring Provider Family Medicine; Visit Provider Family Medicine | DX: L30.9 Dermatitis, unspecified (principal) | CPT/HCPCS: 87506 ==